=== PATIENT | male | born 1995 | race American Indian/Alaskan Native ===

== ENCOUNTER 2020-05-06 02:01 | Outpatient (CLI) | payer MEDICAID, SELFPAY ==
[2020-05-08 11:13] LABS: COVID-19 RT-PCR UVMMC Result Negative (Negative)
== END 2020-05-06 02:02 | disposition home or self-care (01) ==
LOC: LBO 02:01
PROVIDERS: Surgery; PCP Student in an Organized Health Care Education/Training Program; Visit Provider Surgery
DX: Z20.822 Contact with and (suspected) exposure to COVID-19 (principal); Z01.818 Encounter for other preprocedural examination
CPT/HCPCS: U0003

== ENCOUNTER 2020-05-10 09:15 | Day surgery (SDC) | payer MEDICAID, SELFPAY ==
[2020-05-10 09:20] VITALS: BP 130/77; PULSE 74; RESP 16; TEMP 36.2; O2SAT 96
[2020-05-10] MEDS: Lactated Ringers 1,000 ML 80 ML IV (09:50)
--- NOTE | 2020-05-10 11:25 | W.PM.HP.N ---
Date of service: 05/10/20 Time of Service: 11:25 Assessment and Plan Assessment and plan (1) Reflux esophagitis: Status: Suspected Assessment and plan: Informed consent is obtained for the procedural (explained in simple layman's terms that the pt and/or family could understand) explaining risks vs benefits and alternatives to the procedure and consequences if we do not do the procedure and need/rational for the procedure. Risks include but are not limited to: bleeding, infection, perforation of esophagus, stomach, colon, small intestines, bronchus or trachea, or PTX. This would necessitate emergency surgery to repair the damage w/ possible ostomy; and other associated complications w/ the required surgery. Also complications of anesthesia including aspiration, WA/CVA/. (2) ADHD: Status: Chronic History of Present Illness Consults Consult date: 05/10/20 Narrative: PI 25 y/o male presents with complaints of chronic GERD symptoms that have improved with use of Famotidine. He presents for updated H&P and to discuss proceeding with an EGD for further evaluation and biopsies as he discussed in [address] Velázquez. He reports that his symptoms have returned the past few days due to running out of his famotidine. He reports that he uses OTC Tums with good effect. Other associated symptoms include bloating after meals. He denies any bowel habit changes, abdominal pain or nausea and vomiting. He uses marijuana daily. Denies use of any other recreational or illegal drugs. He denies having any chest pain, palpitations, dyspnea or dyspnea with exertion. He denies any history of adverse reactions to anesthesia. Acid Reflux Current symptoms: Denies cough or odynophagia from 05/09/20: Patient states he has no pain or difficulty swallowing. He is not losing any weight. His symptoms include feeling acid coming up into his throat and burning in his esophagus. It is worse at night and when he lies down. He drinks between 3 to 6 cups of coffee a day. He does not take any aspirin or NSAIDs. He does not smoke tobacco. He uses THC daily. He stopped drinking alcohol for March because he is concerned about overuse. I did not make a difference on his signs and symptoms. He has signs and symptoms daily. He only takes the Pepcid as needed not daily. His symptoms have been going on for many years. He has no known drug allergies. He has never had anesthesia before. He is not diabetic. He has had no heart problems to the best of his knowledge. He denies any asthma. Review of Systems Narrative: Four-point review of systems done. Pertinent positive negatives are noted in the HPI. [facility] Medical History Acid reflux Hx TUMs use; Trial H2 Blkr. Recomm EGD [ ] ADHD Hx Dx, but no meds used or planned. Anhedonia Longstanding Hx depressed mood / little interest/pleasure in activities. Nothing acute or severe. Happy/proud of recent college graduation (Illustration?). Reflux esophagitis Family History Brother Asthma Mother Depression Diabetes Other Substance abuse Social History Smoking/Tobacco Use Status: Never Smoking risk assessment performed?: Yes Alcohol Intake: former Drug use: Daily Substance use type: marijuana Details: Pt states he has stopped drinking Household members: friend(s) Housing: apartment Number of Children: 1 Do you need help understanding health information?: Rarely current occupation: [email or web address], [employer] Sexually active: Yes Do you think of yourself as: straight/heterosexual Current gender identity: male What is your relationship status?: never Panel score (0-1 are the most socially isolated patients): 0 What type of physical activity do you participate in: none Seatbelt use: always Do you feel safe at home: Yes Do you feel safe in your relationship?: Yes Meds Home Medications and Allergies Home Medications Medication Instructions Recorded Confirmed Type famotidine 20 mg tablet 20 mg PO DAILY PRN #50 tab 04/01/20 05/10/20 Rx ibuprofen 400 mg PO DAILY 05/06/20 05/10/20 History Allergies Allergy/AdvReac Type Severity Reaction Status Date / Time No Known Allergies Allergy Verified 05/10/20 09:28 Exam Const General: cooperative, healthy appearing, comfortable, no acute distress, well developed and well groomed Nutritional Appearance: average body habitus and well nourished Orientation: alert, awake and oriented x3 HENMT Head: normal to inspection, normocephalic and atraumatic Ears: hearing grossly normal bilaterally and external ears normal General nose exam: external nose normal Face and sinus: normal facial exam and sinuses nontender Mouth: oral mucosae normal, lip normal, tongue normal and moist mucous membranes Teeth and gingiva: dentition normal Eyes General: appearance normal, both eyes and all related structures Conjunctivae: conjunctivae normal Sclera: sclerae normal Pupils: PERRL Neck Neck: normal visual inspection and full ROM Chest Chest: normal inspection of the chest Resp Effort & Inspection: normal respiratory effort, able to speak in complete sentences, no cough, no nasal flaring, not tachypneic and no use of accessory muscles Auscultation: clear to auscultation bilaterally, no rales, no rhonchi and no wheezes Cardio Jugular venous pressure: no JVD Rate: regular rate Rhythm: regular rhythm GI Inspection: normal to inspection, no edema and non-distended Palpation: soft, no masses, nontender and No ascites Auscultation: normal bowel sounds Skin General skin exam: no rashes or lesions noted Trauma: no lacerations or abrasions Neuro General: patient alert, patient oriented x3, oriented, gait normal, moves all extremities, no focal motor deficits and CN's II-XI intact bilaterally Cognition: normal cognition Speech: speech normal Gait: normal gait Motor: muscle tone normal throughout Extrem General: normal to inspection, full ROM and no clubbing, cyanosis or edema Psych Appearance: grossly normal and well kempt Mental Status: mental status grossly normal Speech and Movement: speech and movement normal Affect: normal affect Results Last Vital Signs Temp 36.2 C L 05/10/20 09:20 Pulse 74 05/10/20 09:20 Resp 16 05/10/20 09:20 BP 130/77 05/10/20 09:20 Pulse Ox 96 05/10/20 09:20 COVID-19 Screening Have you, or household traveled for leisure in last 14 days?: No Had IN PERSON contact w/suspected or confirmed C-19 person: No
--- NOTE | 2020-05-10 12:01 | ESO_PTH ---
PATIENT: Amos Burns LOC: J[facility]IOR U#:[id number] AGE/SX: 25/M ROOM: RE05/10/[address]: Susannah Bautista : 1995 BED: DIS: 05/10/2020 SPEC #: [id number] RECD: 05/10/20 13:00 STATUS: ADEBAYO COSTA #: [id number] ALEXUS: 05/10/20 12:[address]: Susannah Bautista DEPT: Surgical Specimen RECD BY: Virginia Carver ENTERED: 05/10/20 13:01 SP TYPE: Eso OTHR DR: Maya Astudillo DO Tissues: 1 - ESOPHAGUS BIOPSY Procedures: GROSS AND MICRO LEVEL 4 Comments: [id number]
--- NOTE | 2020-05-10 12:20 | W.PM.DSUDISC ---
Discharge Plan Disposition Patient Disposition: HOME Condition: Good Discharge Details Reason For Visit: stomach scope Attending Provider: Susannah Bautista Primary Care Provider: Maya Astudillo Home Meds and New Rx's Prescriptions: New pantoprazole [Protonix] 40 mg tablet,delayed release (DR/EC) 40 mg PO BID Qty: 60 RF: 12 sucralfate [Carafate] 1 gram tablet 1 g PO QAC PRN (Reason: and prn for reflux syptoms) Qty: 60 RF: 12 Discontinued famotidine 20 mg tablet 20 mg PO DAILY PRN (Reason: dyspepsia) Qty: 50 RF: 1 ibuprofen 100 mg Tablet 400 mg PO DAILY RF: 0 Discharge Instructions Instructions: GERD (Gastroesophageal Reflux Disease) (GEN) Additional Instructions: Findings: Hiatal hernia and erosive esophagitis Continue with lifestyle modifications: no alcohol, tobacco products, Aspirin or NSAID's (ibuprofen, Motrin, Naprosyn, aleve, etc), soda pop/any carbonated beverages, caffeine (including tea & chocolate) for two weeks. Try to limit: and acidic foods, (tomatoes, citrus, onions, peppermints) spicy or fried/fatty foods. Do not lie down for 30 minutes after eating, and do not eat 2 hours prior to bedtime. Avoid wearing tight fitting clothing/ belts -Protonix BID -Carafate at bedtime adn whenever you are having bad reflux symptoms -No ASA/NSAID's for two weeks -Expect to have a sore throat for the next 24 to 48 hours. Gargle with salt water 5-6 times a day. Follow up: 2 wks Please call if you develop: fevers >101.5 Nausea or Vomiting Abdominal pain that is not transient DAY SURGERY UNIT POST COLONOSCOPY INSTRUCTIONS 1. Because there will be medication in your system for the next 24 hours, you may feel a little sleepy. Your coordination will be affected. Therefore: a. Do not drive or operate dangerous equipment for 24 hours. b. Do not drink alcohol beverages for 24 hours (not even beer). c. Plan to go home and rest for the day. 2. Generally there are no restrictions on your activity after a day or so has gone by, but you may feel a bit fatigued for a few days. 3 After you arrive home you may have a light meal and return to a normal diet as you can tolerate it without feeling sick to your stomach. 4. After surgery, you may feel pain or discomfort. This should be only transient, but if it persists please contact your doctor. 5. If there are any questions regarding the findings of your procedure, please feel free to contact your doctor. 6. If you are unable to contact your doctor with a problem, contact the hospital at [phone]. 7. Continue all your regular medications unless directed otherwise. I understand the above instructions and have no questions. Signature of Patient or Responsible Adult Escort Date/Time Name of Responsible Adult Escort Signature of Nurse Date/Time Activity:: No strenuous activity or lifting over 20 pounds x 24 hours. Diet:: Small light meals x24 hours. Discharge Orders Discharge Orders: Discharge Order (Routine); Ordered 05/10/20 Ordered By: Susannah Bautista DS: Diagnosis Discharge Diagnosis (1) Reflux esophagitis: Status: Suspected (2) ADHD: Status: Chronic (3) Erosive esophagitis: Status: Acute (4) Hiatal hernia: Status: Chronic
--- NOTE | 2020-05-10 12:21 | ENDO_ITS ---
Date of service: 05/10/20 Time of Service: 12:21 Endoscopy Report DATE OF PROCEDURE: 05/10/20 PRE-OP DIAGNOSIS: gerd POST-OP DIAGNOSIS: other (Esophagitis/hiatal hernia) SURGEON: Susannah Bautista ANESTHESIA: GETA PATHOLOGY: other COMPLICATIONS: None DISPOSITION: same day PROCEDURE DESCRIPTION: After informed consent was obtained the patient was take to the procedure room and placed in a supine position. Monitors were applied and a time out was done. The patients name, date of , procedure type, allergies to medications and metal in their body was reviewed. A bite block was placed and the patient was sedated. Once sedated and comfortable the gastroscope was advanced through the oropharynx which was grossly normal into the esophagus. The proximal and mid-esophagus were nl In the distal esophagus there was noted.: He does have a small hiatal hernia. He does have severe esophagitis. There are multiple tongues there what appears to be Jimenez's that do extend into the esophagus. There are no open active ulcers. There is severe excoriation at the GE junction. There is no active bleeding. These appear to be longstanding changes. There is no esophageal varices diverticula or strictures apparent. He does have a small hiatal hernia. Patient had pretty significant reactive airway throughout the course of the case, when the scope was introduced into the oropharynx. Multiple maneuvers were tried to alleviate this. The patient continued to cough cough and mcfarland throughout the case. For safety, biopsies were only done at the GE junction and not the rest of the stomach. The duodenum and and the majority of the stomach appeared normal. His problems appear to be isolated to the GE junction. The scope was advanced into the stomach and through the pylorus into the 3rd portion of the duodenum. The duodenum was noted to be nl. Biopsies were done not done due to reactive airway disease. The scope was retracted back into the stomach and biopsies were done to rule out H. pylori. There were no ulcers. The scope was retroflexed. The cardia and fundus were noted to be normal. There a small sliding type hiatal hernia noted. The scope was retracted back into the esophagus and biopsies were done of the GE junction to rule out Jimenez's. The Z line was irregular. The scope was removed and the patient was woken up and taken back to [facility] in stable condition. He had no respiratory compromise post procedure. He did not aspirate. Follow up: 2-3 wks
[2020-05-10] MEDS: Normal Saline Flush 10 ML SYR IV (12:43)
[2020-05-10] MEDS: Pantoprazole 40 MG VIAL IVP (12:43)
[2020-05-10 13:15] VITALS: BP 124/83; PULSE 83; RESP 16; TEMP 36.2; O2SAT 99
== END 2020-05-10 13:25 | disposition home or self-care (01) ==
PROVIDERS: PCP Student in an Organized Health Care Education/Training Program; Visit Provider Surgery
PROC: 0DJ68ZZ Inspection of Stomach, Via Natural or Artificial Opening Endoscopic (ICD-10-PCS; CPT 43235; principal; 2020-05-10 11:15)
DX: K21.00 Gastro-esophageal reflux disease with esophagitis, without bleeding (principal); K44.9 Diaphragmatic hernia without obstruction or gangrene; F32.9 Major depressive disorder, single episode, unspecified
CPT/HCPCS: 43239; 88305; 99221; J2001

== ENCOUNTER 2021-02-23 16:14 | Outpatient (REF) | payer MEDICAID, SELFPAY ==
[2021-02-25 18:24] LABS: COVID-19 RT-PCR UVMMC Result Negative (Negative)
== END 2021-02-23 16:15 | disposition home or self-care (01) ==
LOC: LBN 16:14
PROVIDERS: PCP Student in an Organized Health Care Education/Training Program; Visit Provider Student in an Organized Health Care Education/Training Program
DX: R05.9 Cough, unspecified (principal); R09.81 Nasal congestion; Z20.822 Contact with and (suspected) exposure to COVID-19
CPT/HCPCS: U0003

== ENCOUNTER 2021-11-07 03:00 | Outpatient (CLI) | payer MEDICAID, SELFPAY ==
[2021-11-07 10:15] LABS: ALT 26 U/L (16-63); AST 18 U/L (15-37); Albumin 4.2 g/dL (3.4-5.0); Alkaline Phosphatase 63 U/L (46-116); Anion Gap 8.6 mmol/L (3-11); BUN 14 mg/dL (7-18); Bilirubin, Total 0.4 mg/dL (0.2-1.0); CO2 29.4 mmol/L (21.0-32.0); CREATININE 0.7 mg/dL (0.70-1.30); Calcium 9.1 mg/dL (8.5-10.1); Calculated LDL 122 mg/dL (<100); Chloride 104 mmol/L (98-107); Cholesterol 208 mg/dL (<200); Glucose 62 mg/dL (74-106); HDL Cholesterol 65 mg/dL (40-60); Potassium 4.1 mmol/L (3.5-5.1); Sodium 142 mmol/L (136-145); Total Protein 8.1 g/dL (6.4-8.2); Triglyceride 106 mg/dL (<150)
== END 2021-11-07 03:01 | disposition home or self-care (01) ==
LOC: LBO 03:00
PROVIDERS: PCP Student in an Organized Health Care Education/Training Program; Visit Provider Student in an Organized Health Care Education/Training Program
DX: K21.9 Gastro-esophageal reflux disease without esophagitis (principal); K22.10 Ulcer of esophagus without bleeding; Z13.220 Encounter for screening for lipoid disorders
CPT/HCPCS: 36415; 80053; 80061

== ENCOUNTER 2022-01-11 08:36 | Day surgery (SDC) | payer MEDICAID, SELFPAY ==
--- NOTE | 2022-01-10 21:38 | W.PM.DSUDISC ---
Date of service: 01/11/22 Time of Service: 10:05 Discharge Plan Disposition Patient Disposition: HOME Condition: Good Discharge Details Attending Provider: David Maldonado Primary Care Provider: Maya Astudillo Home Meds and New Rx's Prescriptions: New pantoprazole [Protonix] 40 mg tablet,delayed release (DR/EC) 40 mg PO DAILY Qty: 60 0RF Rx Instructions: Take one tablet by mouth every day Discontinued famotidine 20 mg tablet 20 mg PO DAILY Rx Instructions: Trial for indigestion, GERD Discharge Instructions Additional Instructions: 1. If tolerated, consume a soft, low fiber diet for 1-2 days. [address] Do not drive, drink alcohol, operate machinery, make critical decisions, or do activities that require coordination or balance for 24 hours. 3. You may experience a sore throat for 24 to 48 hours. You may use throat lozenges or gargle with warm salt water to relieve the discomfort. 5. Because air was put into your stomach during the procedure, you may experience some belching. 6. Go directly to the emergency room if you notice any of the following: Develop chills (warm to touch), or if you have a thermometer and your temperature is above 101 Difficulty breathing or difficultly swallowing Persistent vomiting Severe abdominal pain, other than gas cramps Severe chest pain Black, tarry stools Any bleeding ? exceeding one tablespoon 7. Call your physician if the site where your intravenous was started becomes red, swollen, painful, and warm to touch. 8. Your physician has reviewed your pre-procedure medications. Please continue to take those medications as previously ordered. You will be given specific information/education regarding any changes to your medications before leaving. 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
--- NOTE | 2022-01-10 21:40 | W.PM.ENDDOP ---
Date of service: 01/11/22 Time of Service: 10:05 Endoscopy Report DATE OF PROCEDURE: 01/11/22 PRE-OP DIAGNOSIS: Reflux esophagitis POST-OP DIAGNOSIS: other (Jimenez's esophagus) PROCEDURE: EGD SURGEON: David Maldonado ANESTHESIA TYPE: General:No Airway ESTIMATED BLOOD LOSS: 15 PATHOLOGY: other (Random biopsies of the duodenum, gastric antrum, gastric body, and distal esophagus) COMPLICATIONS: None DISPOSITION: same day INDICATIONS: Amos is a 26-year-old male who was suffered symptoms of gastroesophageal reflux disease. He underwent an endoscopy in the past that raise concerns for reflux esophagitis. He is back today for another diagnostic endoscopy to evaluate for Jimenez esophagus PROCEDURE START TIME: :44 PROCEDURE END TIME: 09:50 FINDINGS: Short segment Jimenez's esophagus PROCEDURE DESCRIPTION: After the initiation of monitored anesthetic care, and with the assistance of a bite block, I advanced a standard gastroscope through the mouth past the hypopharynx and into the esophagus.? Under the direct vision of the scope, I advanced down the esophagus into the stomach.? Once I entered the stomach, I performed a brief inspection, followed by retroflexion towards the gastric cardia.? This appeared normal.? After that, I gently advanced the scope around the incisura angularis and examined the pylorus.? This also appeared normal.? Next, I advanced the scope through the pylorus into the duodenum.? The mucosa was pink and healthy appearing.? There were no abnormalities.? I was able to visualize bile draining into the duodenum through the ampulla Vater. ?Next, I began retracting the endoscope.?I did perform 2 random biopsies of the first portion of the duodenum. Again, I returned to the stomach which was carefully examined. I did not see any evident pathology. I did perform random biopsies of the gastric antrum and gastric body. I then gently desufflated some of the stomach, and withdrew the endoscope into the distal esophagus. The GE junction was around 38 cm. There was a short segment of Jimenez's esophagus. The Z-line was irregular, with some small islands of esophageal mucosa. Segment extended from approximately 36 cm. I was able to perform 3 biopsies of the pathologic segment. Finally, I withdrew the scope along the length of the esophagus taking great care to examine the entirety of the mucosa.? I did not appreciate any abnormalities.
[2022-01-11 08:50] VITALS: BP 120/74; PULSE 68; RESP 16; TEMP 36.5; O2SAT 100
[2022-01-11] MEDS: Lactated Ringers 1,000 ML 80 ML IV (09:15)
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
[2022-01-11 09:20] VITALS: BMI 26.0
--- NOTE | 2022-01-11 09:45 | STOM_PTH ---
PATIENT: Amos Burns LOC: JUNIOR U#:[id number] AGE/SX: 26/M ROOM: RE01/11/[address]: David Maldonado MD : 1995 BED: DIS: 01/11/2022 SPEC #: [id number] RECD: 01/11/22 12:08 STATUS: ADEBAYO RE #: [id number] ALEXUS: 01/11/22 09:[address]: David Maldonado DEPT: Surgical Specimen RECD BY: Virginia Carver ENTERED: 01/11/22 12:09 SP TYPE: STOMACH OTHR DR: Maya Astudillo DO Tissues: 1 - BIOPSY BOWEL 2 - STOMACH BIOPSY 3 - STOMACH BIOPSY 4 - ESOPHAGUS BIOPSY Procedures: GROSS AND MICRO LEVEL 4 Comments: [id number]
[2022-01-11 10:03] VITALS: BP 115/75; PULSE 78; RESP 18; TEMP 36.4; O2SAT 97
[2022-01-11 10:23] VITALS: BP 114/76; PULSE 788; RESP 18; TEMP 36.5; O2SAT 98
--- NOTE | 2022-01-11 10:32 | W.ANESPOSTOP ---
Postoperative Evaluation Date, Time and Location Date Performed: 01/11/22 Time Performed: 10:37 Patient Location: Day Surgery Unit Vital Signs Most Recent Imported Vital Signs: Most Recent Vital Signs Temp Pulse Resp BP Pulse Ox 36.4 C L 78 18 115/75 97 01/11/22 10:03 01/11/22 10:03 01/11/22 10:03 01/11/22 10:03 01/11/22 10:03 Pain Score Most Recent Pain Score: Most Recent Pain Score Pain Level 0 01/11/22 08:50 Assessment Mental Status: Awake (Alert & Oriented to Patient Baseline) Airway and Respiratory Function: Patent airway with normal (patient baseline) respiratory exam Cardiovascular Function: Hemodynamically Stable Hydration Status: Adequately Hydrated Nausea & Vomiting: No Nausea or Vomiting Pain: Pt. Denies Any Pain Peripheral Nerve Block: Patient did not receive a nerve block
--- NOTE | 2022-01-11 10:38 | PDOC.ANES ---
Date of service: 01/11/22 Time of Service: 10:38 Anesthesia Note Report Anesthesia Note: Patient reported a reactive esophagus during his last EGD. I discussed reactive airways with him preoperatively, found to have a very reactive airway intraoperatively, despite IV lidocaine at slightly more than 1mg/kg. I advised the patient postop to let his future anesthesia providers know about his very sensitive airway and let him know I would write this note as well.
== END 2022-01-11 10:35 | disposition home or self-care (01) ==
PROVIDERS: PCP Student in an Organized Health Care Education/Training Program; Visit Provider Surgery
PROC: 0DJ68ZZ Inspection of Stomach, Via Natural or Artificial Opening Endoscopic (ICD-10-PCS; CPT 43235; principal; 2022-01-11 09:45)
DX: K22.70 Barrett's esophagus without dysplasia (principal); K21.00 Gastro-esophageal reflux disease with esophagitis, without bleeding; K22.89 Other specified disease of esophagus
CPT/HCPCS: 43239; 88305

== ENCOUNTER 2023-03-28 09:44 | Emergency (ER) | payer MEDICAID, SELFPAY ==
[2023-03-28 09:49] VITALS: BP 148/84; PULSE 82; RESP 18; TEMP 36; O2SAT 98
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
== END 2023-03-28 11:27 | disposition home or self-care (01) ==
PROVIDERS: Emergency Provider Physician Assistant; PCP Student in an Organized Health Care Education/Training Program
DX: B34.9 Viral infection, unspecified (principal); Z11.52 Encounter for screening for COVID-19
CPT/HCPCS: 87426; 99283

== ENCOUNTER 2023-04-29 10:17 | Emergency (ER) | payer MEDICAID, SELFPAY ==
[2023-04-29 10:23] VITALS: BP 138/87; PULSE 92; RESP 24; TEMP 36.2; O2SAT 96
[2023-04-29 11:08] LABS: COVID-19 PCR Negative (Negative); Influenza A PCR Negative (Negative); Influenza B PCR Negative (Negative); RSV PCR Negative (Negative); Source Nasopharynx
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
--- NOTE | 2023-04-29 11:50 | DI.RAD_ITS ---
Exam(s) XR CHEST 2V PA LATERAL EXAM: XR CHEST 2V PA LATERAL CLINICAL HISTORY: cough TECHNIQUE: 2D digital imaging was performed. COMPARISON: No exams were available for comparison FINDINGS: HEART: Normal size. Aorta: Not dilated. PULMONARY VASCULATURE: Normal. LUNGS: Clear. PLEURAL SPACE: No pleural effusion or pneumothorax. BONE:Unremarkable for age. Soft tissues: Unremarkable. IMPRESSION: No acute abnormality. DATA REPOSITORY: RADIATION DOSE DELIVERED:
--- NOTE | 2023-05-02 14:46 | NUR.NOTE ---
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 Nursing Note:
== END 2023-04-29 12:41 | disposition home or self-care (01) ==
PROVIDERS: Emergency Provider Student in an Organized Health Care Education/Training Program; PCP Student in an Organized Health Care Education/Training Program
DX: J06.9 Acute upper respiratory infection, unspecified (principal); Z11.52 Encounter for screening for COVID-19
CPT/HCPCS: 87637; 99283; 71046

== ENCOUNTER 2023-08-29 18:36 | Emergency (ER) | payer MEDICAID, SELFPAY ==
--- NOTE | 2023-08-29 19:00 | DI.RAD_ITS ---
Exam(s) XR THUMB RT EXAM: XR THUMB RT CLINICAL HISTORY: pain at base of thumb. TECHNIQUE: 2D digital imaging was performed. COMPARISON: No exams were available for comparison FINDINGS: 3 views No evidence of acute fracture or dislocation. No radiopaque foreign body. No osseous lesions nor er osions. IMPRESSION: No acute osseous findings in the thumb. DATA REPOSITORY: RADIATION DOSE DELIVERED:
[2023-08-29 19:01] VITALS: BP 128/93; PULSE 74; RESP 16; TEMP 36.2; O2SAT 99
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
--- NOTE | 2023-08-29 19:44 | DI.VRAD_ITS ---
PROCEDURE INFORMATION: Exam: XR Right Finger(s) Exam date and time: 08/29/2023 7:28 PM Age: 28 years old Clinical indication: Other: Pain at base of thumb TECHNIQUE: Imaging protocol: Radiologic exam of the right fingers. Views: Minimum 2 views. COMPARISON: No relevant prior studies available. FINDINGS: Bones/joints: Normal. Soft tissues: Normal. IMPRESSION: No acute findings. Dictated and Authenticated by: Ciaran Bhakta MD. Ordering:KAROL Workman MD
--- NOTE | 2023-09-02 11:45 | NUR.NOTE ---
Accessed chart to get biling information for [facility]. Nursing Note:
== END 2023-08-29 20:15 | disposition home or self-care (01) ==
PROVIDERS: Emergency Provider Emergency Medicine; PCP Student in an Organized Health Care Education/Training Program
DX: M79.644 Pain in right finger(s) (principal)
CPT/HCPCS: 29125; 99283; 73140

== ENCOUNTER 2023-10-21 13:42 | Emergency (ER) | payer MEDICAID, SELFPAY ==
[2023-10-21 13:52] VITALS: BP 150/98; PULSE 87; RESP 16; TEMP 36.7; O2SAT 98
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
[2023-10-21] MEDS: Lidocaine 5% Patch 1 PATCH TP (15:43)
[2023-10-21] MEDS: Cyclobenzaprine 10 MG TAB, 3 TABS/BTL PO (15:43)
[2023-10-22 14:10] LABS: Chlamydia Result Negative (Negative); GC Result Negative (Negative)
[2023-10-24 00:09] LABS: HSV 1 PCR, B Negative (Negative); HSV 2 PCR, B Negative (Negative)
== END 2023-10-21 15:46 | disposition home or self-care (01) ==
LOC: ER 15:29
PROVIDERS: Emergency Provider Registered Nurse Emergency; PCP Student in an Organized Health Care Education/Training Program
DX: M54.50 Low back pain, unspecified (principal); Z20.2 Contact with and (suspected) exposure to infections with a predominantly sexual mode of transmission
CPT/HCPCS: 36415; 87426; 87491; 87529; 87591; 99283

== ENCOUNTER 2023-11-20 18:45 | Emergency (ER) | payer MEDICAID, SELFPAY ==
[2023-11-20 18:46] VITALS: BP 127/82; PULSE 88; RESP 16; TEMP 36.6; O2SAT 99
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
[2023-11-20] MEDS: Ondansetron O.D.T. 4 MG TABEF PO (20:27)
[2023-11-20] MEDS: Ondansetron O.D.T. 4 MG TABEF, 3 TABS/BTL PO (20:27)
== END 2023-11-20 20:30 | disposition home or self-care (01) ==
PROVIDERS: Emergency Provider Student in an Organized Health Care Education/Training Program; PCP Student in an Organized Health Care Education/Training Program
DX: R11.2 Nausea with vomiting, unspecified (principal)
CPT/HCPCS: 99283